=== PATIENT | female | born 1990 | race Caucasian/White ===

== ENCOUNTER 2024-08-25 12:22 | Emergency (ER) | payer OTHER, SELFPAY ==
[2024-08-25 12:27] VITALS: BP 125/76
[2024-08-25 12:44] LABS: % Basophils 0.5 % (0-2); % Immature Granulocytes 0.3 % (0-0.5); % Lymphocytes 22.2 % (20.5-51.1); % Monocytes 7.2 % (1.7-9.3); % Neutrophils 65.8 % (42.2-75.2); Absolute Eosinophils 0.3 10^3/uL (0-0.7); Absolute Lymphocytes 1.7 10^3/uL (1.2-3.4); Absolute Monocytes 0.6 10^3/uL (0.1-0.6); Absolute Neutrophils 5.1 10^3/uL (1.4-6.5); Hematocrit 36.7 % (37.0-47.0); Hemoglobin 12.6 g/dL (12.0-16.0); Mean Corp Hgb Conc. 34.3 g/dL (33.0-37.0); Mean Corpuscular Hgb 29.4 pg (27.0-31.0); Mean Corpuscular Volume 85.7 fL (81.0-99.0); Mean Platelet Volume 9.8 fL (7.4-10.4); Nucleated Red Blood Cells % 0 %; Platelet Count 262 10^3/uL (130-400); Red Blood Cell Count 4.28 10^6/uL (4.20-5.40); Red Cell Dist. Width 12.1 % (11.5-14.5); White Blood Cell Count 7.8 10^3/uL (4.8-10.8)
[2024-08-25 12:58] LABS: ALT (SGPT) 33 U/L (0-35); AST (SGOT) 25 U/L (14-36); Albumin 4.3 g/dl (3.5-5.0); Alkaline Phosphatase 64 U/L (38-126); Blood Urea Nitrogen 11 mg/dl (7-17); Calcium 9.6 mg/dl (8.4-10.2); Carbon Dioxide 25 mmol/L (22-30); Chloride 105 mmol/L (98-107); Glucose 91 mg/dl (70-99); Potassium 4.1 mmol/L (3.5-5.1); Sodium 139 mmol/L (135-145); Total Bilirubin 0.4 mg/dl (0.2-1.3); Total Protein 6.7 g/dl (6.3-8.2); eGFR > 60.00
[2024-08-25 13:09] LABS: Troponin I < 0.012 ng/ml
[2024-08-25 13:15] LABS: HCG, Serum Qualitative Screen Negative
[2024-08-25 14:30] VITALS: BP 115/76
[2024-08-25 14:34] VITALS: BP 115/76
[2024-08-25 14:36] VITALS: BMI 28.9
--- NOTE | 2024-08-25 14:55 | ED.GENMED ---
History of Present Illness
General
Chief Complaint: Chest Pain
Source: patient
Exam Limitations: none
Time Seen by Provider: 08/25/24 14:23
Nursing documentation reviewed up to this point in time: agreed with
History of Present Illness
History of Present Illness:
Patient is a pleasant 34-year-old female who comes in with complaints of chest pain that started last night and has been intermittent. Patient complains of left-sided chest pain radiating into her upper back. She feels it worse when she takes a
deep breath. She denies a history of PE and DVT. She denies smoking history and control pill. She denies shortness of breath and cough. She denies injury. Patient reports overall the symptoms are much better but still slightly there. She
denies leg pain and leg swelling.
Past History
Past History
ED Past Medical History: Other (ADHD)
ED Past Surgical History: Other
Social History
Tobacco: Non-smoker
Alcohol: None
Drug: None
Personal: Single
Living: other
Employment: Other
Family History
Family History: Other
Review of Systems
Review of Systems
Allergies reviewed?: Yes
All Other Systems: ROS reviewed and negative except as documented in HPI and ROS
Constitutional: Reports no symptoms
EENT: Reports no symptoms
Respiratory: Reports no symptoms
Cardiac: Reports chest pain
ABD/GI: Reports no symptoms
: Reports no symptoms
Musculoskeletal: Reports no symptoms
Skin: Reports no symptoms
Neurological: Reports no symptoms
Endocrine: Reports no symptoms
Hematologic/Lymphatic: Reports no symptoms
Psychiatric: Reports no symptoms
Phy Exam
Physical Exam
Physical Exam:
Physical Exam
General: no apparent distress, not acutely ill. Well appearing
Neck: supple. no meningeal signs. normal psoterior pharynx
Heart: s1/s2 regular rate and rhythm, no murmur. equal radial pulses.
Lungs: no acute respiratory distress. clear bilaterally
Abdomen: normal bowel sounds. not tender. no CVAT
Neuro: alert and oriented. no focal neurological deficits
Skin: no rash
Psychiatric: well kept. interactive and cooperative
Extremities: no edema. no calf tenderness. negative homans. good distal pulses
Scores
Heart Score for Chest Pain Patients
STEMI patient?: No
History: Slightly or Non-Suspicious
ECG: Normal
Age: </= 45 years
Risk Factors: No Risk Factors
Troponin: </= Normal Limit
Heart Score for Chest Pain Patients: 0
Heart Score Risk: 2.5% MACE over next 6 weeks
Course
Orders/Labs/Results
Orders:
Orders
08/25/24 12:23
Electrocardiogram (*1) Urgent
Reason for Study: Chest Pain
EKG- Treatment ONCE
08/25/24 12:31
Test Result ONCE
08/25/24 12:35
Complete Blood Count/With Diff Urgent
Comprehensive Metabolic Panel Urgent
HCG, Serum Qualitative Screen Urgent
Troponin I Urgent
08/25/24 14:57
D-Dimer Urgent
08/25/24 15:30
Ketorolac [Toradol] 30 mg IV NOW STA
CR Chest - 2 Views Urgent
Comment:
Reason For Exam: CP
Abnormal Lab Results
08/25/24
12:35
Hct 36.7 L %
(37.0-47.0)
08/25/24 12:35
08/25/24 12:35
Vital Signs
Initial and Last Documented VS:
Initial Vital Signs
Temp Pulse Resp BP Pulse Ox
98.4 F 60 18 125/76 98
08/25/24 12:27 08/25/24 12:27 08/25/24 12:27 08/25/24 12:27 08/25/24 12:27
Last Documented Vital Signs
Temp Pulse Resp BP Pulse Ox
98.3 F 61 18 105/68 98
08/25/24 14:30 08/25/24 16:46 08/25/24 16:46 08/25/24 16:46 08/25/24 16:46
MDM/Problems Addressed
Differential Diagnosis Includes:
Acute coronary syndrome, gastritis, pulmonary embolism, pneumonia, aortic dissection
MDM/Problems Addressed:
Patient presents with acute chest pain
*Radiology
Radiology exam reviewed: preliminary read by ED provider
*Pulse Oximetry
Patient hypoxic: no
*EKG
Interpreted by ED Provider?: Yes
Interpretation: normal
Comparison EKG: no comparison EKG present
Rate: normal
Rhythm: sinus
[place]: normal axis
Interval: normal interval
QRS Pattern: normal QRS
Ischemia: no ischemia
*[employer] Interpretation
Rate: normal
Interpretation: normal
Rhythm: sinus
*Critical Care Note
Total Time (30-74mins, 75-104mins- exclusive of procedures): Not Applicable
Data Reviewed
Review of Other/Old Records Reveals: Testing (Cardiac echo normal in 2013)
Source: patient
Patient Management
Social determinants of health affecting care: Living situation and Strong social support
Escalation/DeEscalation of care consider admission/obs:
Patient continues to look extremely well and comfortable. EKG is nonischemic. Troponin is normal. Patient is very low risk for acute coronary syndrome. Patient has no tachycardia or hypoxia and D-dimer is normal, therefore, is unlikely to be PE.
Patient may have pleurisy or musculoskeletal chest pain. Additionally, patient could have gastritis.
ED Attending Note
-
Portions of this chart may have been created with voice recognition software.� Occasional wrong word or��sound alike� substitutions may have occurred due to the inherent limitations of voice recognition software.
Discharge Plan
Departure
Patient Disposition: Home (Routine Discharge)
Date of Disposition: 08/25/24
Time of Disposition: 16:16
Patient with high blood pressure during this ER visit?: No
Condition: Good
Covid-19: Not Applicable
Discharge Problem:
Chest pain in adult
Instructions: Chest Pain PCP Follow Up
Prescriptions:
No Action
cetirizine [Zyrtec] 10 mg Tablet
10 mg PO DAILY
omeprazole 20 mg Capsule,Delayed Release(Dr/Ec)
20 mg PO DAILY PRN (Reason: indigestion)
dextroamphetamine-amphetamine [Adderall] 5 mg Tablet
5 mg PO .TAPER PRN (Reason: ADD/anxiety)
Rx Instructions:
Taper. . . 10mg, 5mg, 5mg q6h prn
Referrals:
Juliana Valente MD [Family Provider] -
Activity Restrictions/Additional Instructions:
Take 600 mg of Advil/Motrin (with food) every 6-8 hours for pain
Interventions
Interventions:
*Risk Screen - Suicide Last Done: 08/25/24 12:27
*General Assessment Last Done: 08/25/24 12:27
*Neglect/Abuse Screening Last Done: 08/25/24 12:27
ED- Fall Risk Assessment Last Done: 08/25/24 14:36
*ED COVID-19 Vaccine History Last Done: 08/25/24 14:36
*Nursing Disposition Last Done: 08/25/24 16:46
ED- Cardiac Assessment Last Done: 08/25/24 14:57
Discharge Date and Time
Discharge Date/Time: 08/25/24 16:46
Print Language: MALAY
[2024-08-25 15:00] VITALS: BP 101/64
[2024-08-25 15:26] LABS: D-Dimer 0.49 ug/mlFEU (0.00-0.50)
[2024-08-25] MEDS: TORADOL 30 MG IV (16:38)
[2024-08-25 16:46] VITALS: BP 105/68
== END 2024-08-25 16:46 | disposition home or self-care (01) ==
LOC: EMR 12:22
PROVIDERS: Emergency Medicine; EMERGENCY PHYSICIAN Emergency Medicine; FAMILY PHYSICIAN Family Medicine
DX: R07.89 Other chest pain (principal)
CPT/HCPCS: 96374; 99285; 71046; 80053; 84484; 84703; 85025; 85379; 93005